=== PATIENT | male | born 1955 | race African-American/Black ===

== ENCOUNTER 2016-06-28 08:56 | Day surgery (SDC) | payer BC ==
[~2016-06-28] VITALS: Ht 167.6 cm; Wt 91.3 kg
[2016-06-28] VITALS (9 sets, daily range): BP systolic 128–151; BP diastolic 67–99; PULSE 60–71; RESP 13–20; Ht 167.6 cm; Wt 91.3 kg
[2016-06-28] MEDS ORDERED: HYD25 PO (10:38)
[2016-06-28] MEDS ORDERED: LEDI1TAB PO (10:38)
[2016-06-28] MEDS ORDERED: PROPOFOL 40 ML ONE (10:41)
--- NOTE | 2016-06-28 13:11 | GILP ---
DATE OF PROCEDURE: 06/28/2016 NAME OF PROCEDURE: Colonoscopy. SURGEON: Siria Willson MD PREOPERATIVE DIAGNOSIS: Screening colonoscopy. POSTOPERATIVE DIAGNOSES: 1. Colonoscopy all the way to the cecum. 2. Diverticulosis of the colon. 3. Internal hemorrhoids. 4. No colon neoplasm was identified. INDICATION FOR THE PROCEDURE: Mr. Anjum Nevarez is a 60-year-old male patient who was scheduled for s creening colonoscopy. The procedure and possible complications were well explained to the patient. The patient understood and consented to the procedure. DESCRIPTION OF PROCEDURE: Under the influence of anesthesia, the colonoscope was carefully introduc ed in the rectum and under direct vision, it was advanced all the way to the cecum. FINDINGS: The patient had diverticulosis of the colon. He also had internal hemorrhoids. No colon neoplasm was identified. He tolerated the procedure very well and there was no complication from the procedure. At the end o f the procedure, he was awake with stable vital signs and he was discharged home to the care of his family. IMPRESSION: 1. Colonoscopy all the way to the cecum. 2. Diverticulosis of the colon. 3. Internal hemorrhoids. 4. No colon neoplasm was identified. PLAN: Next screening colonoscopy in 10 years. Dictated By: SIRIA GALLEGOS/ESPERANZA Conf#: [id number] DID#: [id number] CC: SIRIA WILLSON MD;*EndCC*
== END 2016-06-28 12:20 | disposition home or self-care (01) ==
LOC: GIL 08:56
PROVIDERS: ATTEND Internal Medicine Gastroenterology
DX: Z12.11 Encounter for screening for malignant neoplasm of colon (principal); K57.90 Diverticulosis of intestine, part unspecified, without perforation or abscess without bleeding; K64.8 Other hemorrhoids; I10 Essential (primary) hypertension
CPT/HCPCS: 45378; Z7610